=== PATIENT | female | born 1955 | race Caucasian/White ===

== ENCOUNTER 2018-08-09 15:39 | Emergency (ER) | payer SELFPAY ==
--- NOTE | 2018-08-09 15:56 | PDOC ---
Rapid Medical Evaluation Chief Complaint: Ear Problem Time Seen by Provider: 08/09/18 15:54 Medical Evaluation: Allergies Allergy/AdvReac Type Severity Reaction Status Date / Time No Known Allergies Allergy Verified 08/09/18 15:48 08/09/18 15:55 HPI: L ear pain x3 days PE: No gross deficits, ambulates ORDERS: Nothing Discharge Disposition - Diagnosis Ear pain, left - Referrals - Patient Instructions - Post Discharge Activity
[2018-08-09 15:59] VITALS: BMI 48.8
--- NOTE | 2018-08-09 16:24 | PDOC ---
History of Present Illness - General Chief Complaint: Ear Problem Stated Complaint: LT EAR PAIN Time Seen by Provider: 08/09/18 15:54 History Source: Patient Exam Limitations: No Limitations - History of Present Illness Initial Comments: 08/09/18 18:38 Is here with complaints of severe left ear pain. 3 days ago had onset of tenderness and redness, but since that time is progressively worsened where now is unable to turn head due to the significant pain and swelling of her left earlobe with. When drainage from her canal. 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 Has felt feverish but has not taken temperature. Does not use Q-tips to clean ears. Recently returned from [place] where she lives Timing/Duration: unsure Severity: moderate, severe Associated Symptoms: reports: fever/chills, headaches, malaise Past History - Travel Traveled outside of the country in the last 30 days: No Close contact w/someone who was outside of country & ill: No - Past Medical History Allergies/Adverse Reactions: Allergies Allergy/AdvReac Type Severity Reaction Status Date / Time No Known Allergies Allergy Verified 08/09/18 15:48 Home Medications: Ambulatory Orders Unobtainable 08/09/18 COPD: No - Immunization History Immunization Up to Date: Yes - Suicide/Smoking/Psychosocial Hx Smoking History: Never smoked Information on smoking cessation initiated: No Hx Alcohol Use: No Drug/Substance Use Hx: No Review of Systems - Review of Systems Able to Perform ROS?: Yes Is the patient limited Lao proficient: Yes Constitutional: Yes: Symptoms Reported, See HPI HEENTM: Yes: Symptoms Reported, See HPI, Ear Pain, Ear Discharge Respiratory: Yes: See HPI. No: Symptoms reported Integumentary: Yes: Symptoms Reported, See HPI, Erythema, Lesions Neurological: Yes: Symptoms reported, See HPI, Headache All Other Systems: Reviewed and Negative *Physical Exam - Vital Signs Last Vital Signs Temp Pulse Resp BP Pulse Ox 99.0 F 68 16 108/62 96 08/09/18 15:49 08/09/18 15:49 08/09/18 15:49 08/09/18 15:49 08/09/18 15:49 - Physical Exam General Appearance: Yes: Nourished (oderately obese), Appropriately Dressed, Apparent Distress, Moderate Distress, Severe Distress HEENT: positive: HANNA, Pharynx Normal, Nasal Congestion. negative: Normal ENT Inspection, TMs Normal (unable to visual into canal due to swelling and severe pain - note purulent driange from canal ), TM Bulging (nable to visualize TM due to significant swelling and purulent drainage in left ear canal, exquisite tenderness with manipulation of penis. Has a small pointing lesionin the upper aspect of the helix,and erythema surrounding earlobe extending to lateral aspect of zygomatic arch area.) Neck: positive: Tender, Trachea midline, Supple, Lymphadenopathy (R), Lymphadenopathy (L) Respiratory/Chest: positive: Lungs Clear, Normal Breath Sounds Extremity: positive: Normal Capillary Refill, Normal Inspection, Normal Range of Motion Integumentary: positive: Dry, Warm, Erythema, Pale Neurologic: positive: test grader II-XII NML intact, Fully Oriented, Alert, Normal Mood/ Affect, Normal Response, Motor Strength 06/18 ED Treatment Course - LABORATORY CBC & Chemistry Diagram: 08/09/18 16:37 08/09/18 16:37 Medical Decision Making - Medical Decision Making 08/09/18 18:06 Returned from CAT scan, receiving clindamycin 600 mg IV piggyback States Toradol 30 mg IVthat was givenapproximately 1-1/2 hours ago has significantly resolved much of the pain. 08/09/18 20:[address] 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 As there is no ear nose and throat coverage patient will be transferredor definitive treatment 08/09/18 20:11 *DC/Admit/Observation/Transfer Diagnosis at time of Disposition: Cellulitis of left ear - Discharge Dispostion Disposition: TRANSFER ACUTE CARE/OTHER HOSP Condition at time of disposition: Stable - Referrals - Patient Instructions - Post Discharge Activity
[2018-08-09] MEDS ORDERED: KETOROLAC TROMETHAMINE 30 MG/1 ML VIAL ONE (16:42)
[2018-08-09 16:45] LABS: BASO % 0.8 % (0-2.0); EOS % 2.6 % (0-4.5); HEMATOCRIT 41.5 % (32.4-45.2); HEMOGLOBIN 13.5 GM/dL (10.7-15.3); MCH 29.4 pg (25.7-33.7); MCHC 32.4 g/dl (32.0-36.0); MEAN CELL VOLUME 90.9 fl (80-96); MEAN PLT VOLUME 7.9 fl (7.5-11.1); MONO % 6.8 % (3.8-10.2); NEUT % 73.8 % (42.8-82.8); PLATELET COUNT 210 K/MM3 (134-434); RBC 4.57 M/mm3 (3.60-5.2); RDW 15.7 % (11.6-15.6); WHITE BLOOD COUNT 8.8 K/mm3 (4.0-10.0)
[2018-08-09] MEDS ORDERED: KETOROLAC TROMETHAMINE 30 MG/1 ML VIAL IVPUSH ONE (16:49)
[2018-08-09 17:10] LABS: ALBUMIN 3.7 g/dl (3.4-5.0); BILIRUBIN,TOTAL 0.4 mg/dL (0.2-1); BLOOD UREA NITROGEN 30.5 mg/dL (7-18); CALCIUM 9.3 mg/dL (8.5-10.1); CREATININE 1.1 mg/dL (0.55-1.3); POTASSIUM 4.8 mmol/L (3.5-5.1); TOT PROT 8.6 g/dl (6.4-8.2)
[2018-08-09] MEDS ORDERED: CLINDAMYCIN 600MG PREMIX IVPB 600 MG/50 ML BAG IVPB ONE (18:37)
[2018-08-09] MEDS ORDERED: CLINDAMYCIN PHOSPHATE 600 MG/4 ML VIAL ONE (18:44)
--- NOTE | 2018-08-09 20:09 | PDOC ---
*Physical Exam - Vital Signs Last Vital Signs Temp Pulse Resp BP Pulse Ox 99.0 F 68 16 108/62 96 08/09/18 15:49 08/09/18 15:49 08/09/18 15:49 08/09/18 15:49 08/09/18 15:49 ED Treatment Course - LABORATORY CBC & Chemistry Diagram: 08/09/18 16:37 08/09/18 16:37 - ADDITIONAL ORDERS Additional order review: Laboratory Results 08/09/18 16:37 Sodium 143 Potassium 4.8 Chloride 110 H Carbon Dioxide 28 Anion Gap 4 L BUN 30.5 H Creatinine 1.1 Est GFR (CKD-EPI)AfAm 62.31 Est GFR (CKD-EPI)NonAf 53.76 Random Glucose 94 Calcium 9.3 Total Bilirubin 0.4 AST 14 L ALT 24 Alkaline Phosphatase 123 H Total Protein 8.6 H Albumin 3.7 08/09/18 16:37 RBC 4.57 MCV 90.9 MCHC 32.4 RDW 15.7 H MPV 7.9 Neutrophils % 73.8 Lymphocytes % 16.0 Monocytes % 6.8 Eosinophils % 2.6 Basophils % 0.8 - Medications Given in the ED: ED Medications Discontinued Medications Generic Name Dose Route Start Last Admin Trade Name Freq PRN Reason Stop Dose Admin Clindamycin Phosphate 600 mg in 50 mls @ 100 mls/hr 08/09/18 18:37 08/09/18 18:50 Cleocin 600 Mg Premix Ivpb - IVPB 08/09/18 19:06 100 mls/hr ONCE ONE Administration Ketorolac Tromethamine 30 mg 08/09/18 16:49 08/09/18 17:00 Toradol Injection - IVPUSH 08/09/18 16:50 30 mg ONCE ONE Administration Medical Decision Making - Medical Decision Making 08/09/18 20:09 Pt seen by the Advanced Practice Provider under my direct supervision Ancillary studies reviewed I agree with plan as outlined by the Advanced Practice Provider Pt pending transfer to [facility] for ENT evaluation after 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
[2018-08-09 20:42] VITALS: PULSE 70
[2018-08-09 21:58] VITALS: BP 113/75; TEMP 100
== END 2018-08-09 21:56 | disposition short-term general hospital (02) ==
LOC: JER 15:39 → JERFT 15:39 → JER 21:56
PROC: 3E03329 Introduction of Other Anti-infective into Peripheral Vein, Percutaneous Approach (ICD-10-PCS; principal; 2018-08-09)
PROC: 3E0333Z Introduction of Anti-inflammatory into Peripheral Vein, Percutaneous Approach (ICD-10-PCS; 2018-08-09)
DX: H93.8X2 Other specified disorders of left ear (principal); H60.12 Cellulitis of left external ear; M86.8X8 Other osteomyelitis, other site
CPT/HCPCS: 36415; 70481-TC; 80053; 85025; 99283-25